=== PATIENT | female | born 1955 | race Caucasian/White ===

== ENCOUNTER → 2017-08-15 | Outpatient (CLI) | payer OTHER, MEDICARE ==
--- NOTE | 2017-08-15 10:00 | DIAGNOSTIC IMAGING REPORT ---
(CHEST) THORAX WITHOUT CLINICAL HISTORY: 61 years-old Female presenting with M86.9 Osteomyelitis focus on left SC joint [id number]. TECHNIQUE: Multidetector CT imaging of the chest was performed without the use of intravenous contrast. IV contrast: None. A dose lowering technique was used consistent with the principles of ALARA (as low as reasonably achievable). COMPARISON: None. CT DOSE (mGy.cm): The estimated cumulative dose is 1125.71 mGy.cm. FINDINGS: Transition Nurse topogram: Unremarkable. On soft tissue windows, thyroid diffusely enlarged. No axillary, supraclavicular, or mediastinal lymphadenopathy. Evaluation of the yinka limited without intravenous contrast. Atherosclerosis of the aorta. Normal heart size. Coronary artery calcification. No pericardial or pleural effusion. Hepatic steatosis. The liver is somewhat enlarged. Cholecystectomy clips. On lung windows, mild paraseptal emphysematous changes predominantly at the apices. Mosaic attenuation could suggest small airways disease. Minimal linear and bandlike opacities likely atelectasis or scarring. Mild bronchial wall thickening. Trace centrilobular emphysematous changes. Central airways patent. On bone windows, extensive sclerosis with cortical irregularity of the proximal left clavicle at the level of the sternoclavicular joint. The manubrium does not demonstrate osseous changes. Mild surrounding inflammatory changes suggested. Degenerative changes of the spine also noted. Possible old right posterior rib fracture. IMPRESSION: 1. Findings suspicious for chronic osteomyelitis of the proximal left clavicle at the level of the left sternoclavicular joint. No evidence of osseous changes in the manubrium though MR would be more sensitive for this. 2. Paraseptal predominant emphysema. 3. Hepatic steatosis. Electronically signed by: Derrick Khan M.D. 08/15/2017 9:59 AM Dictated Date/Time: 08/15/2017 9:52 AM
== END | disposition home or self-care (01) ==
LOC: C.CTS 09:06
PROVIDERS: ATTEND Surgery
DX: M86.9 Osteomyelitis, unspecified (principal); K76.0 Fatty (change of) liver, not elsewhere classified